=== PATIENT | female | born 1975 | race Caucasian/White ===

== ENCOUNTER 2020-06-25 11:10 | Day surgery (SDC) | payer OTHER ==
[~2020-06-25 11:10] MED LIST: ADVIL200 M1 PO; NORCO 5-325 TA1 EACH PO; PYRIDIUM200 MG PO
[2020-06-25] MEDS ORDERED: PRILOSEC OTC20 MG PO (11:34)
--- NOTE | 2020-06-25 12:48 | NUR ---
06/25/20 1248 [address] 1244- PT TO PACU IN LL POSITION. EYES OPEN. RESPONDS APPROPRIATELY TO QUESTIONS AND COMMANDS. BREATHING EASY AND UNLABORED. SPO2 >95% ON 2 L NC. REAGAN. DENIES PAIN NAUSEA OR DIZZINESS AT THIS TIME. PT EDUCATED ON PLAN OF CARE FOR PACU AND DC.
--- NOTE | 2020-06-27 11:55 | OR ---
[facility] [address], [place] [address] Signed DATE OF OPERATION: 06/25/2020 SURGEON: Adolph Gaming MD PREOPERATIVE DIAGNOSES: 1. Upper abdominal pain persistent and recurrent including right upper quadrant pain. 2. H. pylori positive with treatment failure at least once. POSTOPERATIVE DIAGNOSES: 1. Normal esophagus, stomach and duodenum. CLOtest negative 15 minutes postprocedure. 2. Small hiatal hernia. PROCEDURE: Esophagogastroduodenoscopy with biopsy. ANESTHESIA: Intravenous sedation fentanyl 100 mcg, Versed 6 mg. INDICATION: This 44-year-old white woman is a patient of SATCY Newton and has had vague upper abdominal pain. She was found to have H pylori on serologic testing, underwent treatment as well as, which included antibiotics and PPI medication. A urea breath test was performed, which showed persistence of infection. She does have family history of biliary disease in two sisters, both of whom had cholecystectomy. She has had childbirth and other risk factors for biliary disease and her symptoms more recently have include right upper abdominal pain. She is scheduled for gallbladder ultrasound tomorrow. She was admitted at this time to undergo upper endoscopy to better assess the possibility of gastritis, ulceration and of course, re-evaluation for possible H. pylori. Her COVID test has been found to be negative. She understands the risks of bleeding, infection, and perforation related to upper endoscopy and wished to proceed. FINDINGS: A normal esophagus, stomach and duodenum was noted. There was no sign of gastritis or inflammation in any way. No ulceration. CLOtest was negative 15 minutes postprocedure as well. She did have a small hiatal hernia on retroflexed view, but absolutely no obvious esophagitis. Her vocal cords were normal as well. DESCRIPTION OF PROCEDURE: Electronically Signed By: ADOLPH GAMING MD 06/27/20 1155 PATIENT NAME: CARLY COMER OPERATIVE REPORT DATE OF : 79 REPORT #: [id number] PHYSICIAN: ADOLPH GAMING MD PCP: ANANTH MEDEROS REPORT IS CONFIDENTIAL AND NOT TO BE RELEASED WITHOUT AUTHORIZATION [facility] [address], [place] [address] Signed The patient was brought to the endoscopy suite, given topical lidocaine spray hypopharyngeal anesthesia and placed in lateral decubitus position. She was given intravenous sedation to the point of slurred speech and nystagmus with full cardiopulmonary monitoring. A bite block was placed. An Olympus video upper endoscope was passed in the hypopharynx. The vocal cords appeared normal. Scope was advanced into esophagus. The esophagus throughout its length was entirely normal. The scope passed into the stomach without problem. There was no sign of bile or other abnormality of the stomach. Rugal folds were normal as was the antral mucosa. The pylorus was normal. Scope was passed through into the duodenum, which was normal. Biopsies were taken of the duodenum to assess for celiac disease. The scope was withdrawn. A biopsy was then taken of the antrum for both ALTHEA and pathologic testing. Retroflexed view was undertaken showing a poor flap valve consistent with small hiatal hernia. The scope was withdrawn and distal esophageal biopsies were obtained, although the mucosa appeared entirely normal. The remaining of esophagus was normal. Scope was removed. The patient was taken to the recovery room in good condition. CONCLUDING DIAGNOSIS: No evidence of peptic disease currently. CLOtest negative so far indicative of no sign of persistent H. pylori. She is already scheduled to have an ultrasound of the gallbladder tomorrow and we will encourage her to follow up with that test. We will see her in followup and review her pathology reports, her clinical course and so on. In the meantime, we will have her continue with the proton pump inhibitor, Prilosec daily. MD DANIEL Simon/VALORIE /[id number] cc: STACY Newton Copies: ANANTH MEDEROS ~ Electronically Signed By: ADOLPH GAMING MD 06/27/20 1155 PATIENT NAME: CARLY COMER OPERATIVE REPORT DATE OF : 79 REPORT #: [id number] PHYSICIAN: ADOLPH GAMING MD PCP: ANANTH MEDEROS REPORT IS CONFIDENTIAL AND NOT TO BE RELEASED WITHOUT AUTHORIZATION
--- NOTE | 2020-06-27 17:46 | PATH ---
[facility] [address], [place] [address] Signed SPECIMEN(S): A ANTRUM/PYLORUS BIOPSY SPECIMEN(S): B DUODENAL BIOPSY SPECIMEN(S): C LOWER ESOPHAGEAL BIOPSY SPECIMEN SOURCE: A. ANTRUM/PYLORUS BIOPSY B. DUODENAL BIOPSY C. LOWER ESOPHAGEAL BIOPSY CLINICAL HISTORY: History of H. pylori, upper epigastric pain. Postop Dx: Small hiatal hernia. MICROSCOPIC DESCRIPTION: Histologic sections of all submitted blocks are examined by light microscopy. These findings, together with the gross examination, support the pathologic diagnosis. FINAL PATHOLOGIC DIAGNOSIS: A. 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 B. Duodenum, biopsy: - Duodenal mucosa with no significant pathologic changes. C. Esophagus, lower, biopsy: - Esophageal squamous mucosa with no significant pathologic changes. COMMENT: Part A) An immunohistochemical stain for Helicobacter pylori is performed and is positive, supporting the above interpretation. BRP:em:smn:[id number] GROSS DESCRIPTION: Three specimens are received in three containers, labeled "AW." A. The specimen, labeled "AW, one," and designated on the requisition "antrum/pylorus biopsy," is received in formalin and consists of 2 leung soft tissue fragment(s) that measure 0.3 and 0.4 cm in greatest dimension. The specimen is entirely submitted in cassette (A1). B. The specimen, labeled "AW, 2," and designated on the requisition "duodenum biopsy," is received in formalin and consists of 2 leung soft tissue fragment(s) that measure 0.3 and 0.4 cm in greatest dimension. The specimen is entirely submitted in cassette (B1). C. The specimen, labeled "AW, 3," and designated on the requisition "lower PATIENT NAME: EMMA COMER PATHOLOGY DATE OF : 79 REPORT #: [id number] PHYSICIAN: BRANDO PATHOLOGY PCP: ANANTH MEDEROS REPORT IS CONFIDENTIAL AND NOT TO BE RELEASED WITHOUT AUTHORIZATION [facility] [address], [place] [address] Signed esophagus biopsy," is received in formalin and consists of 2 leung-white soft tissue fragment(s) that measure 0.3 and 0.4 cm in greatest dimension. The specimen is entirely submitted in cassette (C1). AI (under the direct supervision of a pathologist) The Gross Description was prepared using a voice recognition system. The report was reviewed for accuracy; however, sound-alike word errors, addition and/or deletions may occur. If there is any question about this report, please contact Client Services. ADDITIONAL NOTES: Immunohistochemical and/or in situ hybridization studies were performed on this case with the appropriate positive controls that react as expected. This test was developed and its performance characteristics determined by [facility]. It has not been cleared or approved by the U.S. Food and Drug Administration. The FDA has determined that such clearance or approval is not necessary. This test is used for clinical purposes. It should not be regarded as investigational or for research. [facility] is certified under the Clinical Laboratory Improvement Amendments of 1988 (CLIA) as qualified to perform high complexity clinical laboratory testing. PERFORMING LABORATORY: The technical component was performed by [facility], [address] [place] [id number] (Plate And Weld Inspector: Emma Brown MD; CLIA# [id number]). Professional interpretation was performed by [facility], [facility], [address] [address] (CLIA# [id number]). Diagnostician: John Albert MD Pathologist Electronically Signed 06/27/2020 Copies: ~ PATIENT NAME: EMMA COMER VINEET PATHOLOGY DATE OF : 79 REPORT #: [id number] PHYSICIAN: BRANDO PATHOLOGY PCP: ANANTH MEDEROS REPORT IS CONFIDENTIAL AND NOT TO BE RELEASED WITHOUT AUTHORIZATION
== END 2020-06-25 13:20 | disposition home or self-care (01) ==
LOC: OPS 11:10 → DS 11:13 → OPS 13:20 → DS 14:00 → OPS 14:00
PROVIDERS: ATTEND Surgery
PROC: 0DB68ZZ Excision of Stomach, Via Natural or Artificial Opening Endoscopic (ICD-10-PCS; principal; 2020-06-25 14:00)
DX: K29.50 Unspecified chronic gastritis without bleeding (principal); B96.81 Helicobacter pylori [H. pylori] as the cause of diseases classified elsewhere; R10.11 Right upper quadrant pain; K44.9 Diaphragmatic hernia without obstruction or gangrene; Z86.19 Personal history of other infectious and parasitic diseases; Z83.79 Family history of other diseases of the digestive system
CPT/HCPCS: 84703; 99153; G0500; J2250; J3010; J7121